=== PATIENT | female | born 1990 | race Caucasian/White ===

== ENCOUNTER 2021-01-31 12:57 | Emergency (ER) | payer OTHER ==
[~2021-01-31] VITALS: Ht 157.5 cm; Wt 47.7 kg
[2021-01-31 13:12] VITALS: BP 122/74
--- NOTE | 2021-01-31 13:23 | PHYS DOC ---
Past History Additional Past Medical Histor: DEPRESSION ANXIETY ANOREXIA (SARA GREEN APRN) Past Surgical History: No Surgical History (SARA GREEN APRN) Adult General Chief Complaint Chief Complaint: Palpitations HPI HPI Patient is a 30-year-old female presents to the emergency department complaining of heart palpitations since November 22. Patient reports she is worried that she may have something worse going on with her body. Patient states that she has a hist ory of anorexia nervosa. Patient reports she was last hospitalized she was 22 years old. Patient states that she believes she has had a relapse recently related to a move from [place] to [facility]. Patient reports she has significantly decreased her caloric intake and has started running half marathons along with joining a running club at that runs between 4.9 of 6.8 miles each weekend. Patient reports she has been seeking help for her anorexia problems and plans to see Dr. Aguilar at [facility] in [place]. Patient reports she has been getting nauseated when she carb cycles. Patient reports during her high carb intake with Posta she becomes very nauseated has periods of vomiting and diarrhea. Patient denies any chest pains, shortness of breath, chest or nasal congestion, fever chills, rashes to her skin, urinary tract infection type signs and symptoms, denies other physical complaints or physical concerns. Patient reports taking Abilify for depression. (SARA GREEN APRN) Review of Systems Review of Systems 14 body systems of review of systems have been reviewed. See HPI for pertinent positives and negative responses, otherwise all other systems are negative, nonpertinent or noncontributory. Constitutional: Negative except as outlined in HPI above. Skin: Negative except as outlined in HPI above. Eyes: Negative except as outlined in HPI above. HENT: Negative except as outlined in HPI above. Respiratory: Negative except as outlined in HPI above. Cardiovascular: Negative except as outlined in HPI above. GI: Negative except as outlined in HPI above. : Negative except as outlined in HPI above. Musculoskeletal: Negative except as outlined in HPI above. Integument: Negative except as outlined in HPI above. Neurologic: Negative except as outlined in HPI above. Endocrine: Negative except as outlined in HPI above. Lymphatic: Negative except as outlined in HPI above. Psychiatric: Negative except as outlined in HPI above. (SARA GREEN APRN) Current Medications Current Medications Current Medications Medications (Trade) Dose Ordered Sig/Dutch Start Time Stop Time Status Last Admin Dose Admin Lactated Ringer's 1,000 ml @ 0 mls/hr 1X ONCE 01/31/21 13:30 01/31/21 13:31 UNV (SARA GREEN APRN) Physical Exam Physical Exam Constitutional: Well developed, well nourished, no acute distress, non-toxic appearance. 30-year-old female no apparent distress. Patient is very thin emaciated. HENT: Normocephalic, atraumatic, bilateral external ears normal, oropharynx moist, no oral exudates, nose normal. [] Eyes: PERRLA, EOMI, conjunctiva normal, no discharge. Neck: Normal range of motion, no tenderness, supple, no stridor. Cardiovascular:Heart rate regular rhythm, no murmur Lungs & Thorax: Bilateral breath sounds clear to auscultation Abdomen: Bowel sounds normal, soft, no tenderness, no masses, no pulsatile masses. Skin: Warm, dry, no erythema, no rash. Back: No tenderness, no CVA tenderness. Extremities: No tenderness, no cyanosis, no clubbing, ROM intact, no edema. Neurologic: Alert and oriented X 3, normal motor function, normal sensory function, no focal deficits noted. Psychologic: Affect normal, judgement normal, mood normal. (SARA GREEN APRN) Current Patient Data Vital Signs Vital Signs Date Time Temp Pulse Resp B/P (MAP) Pulse Ox O2 Delivery O2 Flow Rate FiO2 01/31/21 13:12 92 24 122/74 100 Room Air (SARA GREEN APRN) EKG EKG EKG performed at 1308 by staff shows a normal sinus rhythm without ectopy heart rate 90 bpm, IN interval 0.154, QT 0.45, no acute STEMI, no ACS, no acute ischemia appreciated, EKG interpreted by ED attending physician Dr. Fischer. (SARA GREEN APRN) Radiology/Procedures Radiology/Procedures PATIENT: MAMIE BUTLER ACCOUNT: [id number] : 1990 LOCATION: ER AGE: 30 SEX: F EXAM STATUS: REG ER ORD. PHYSICIAN: SARA GREEN APRN REASON: HEART PALPITATIONS X3 HOURS PROCEDURE: CHEST AP ONLY Chest AP only at 1319: Reason for examination: Heart palpitations for 3 hours. The heart size is normal. Mediastinum is unremarkable. Lung woodson are clear. No acute bony abnormalities are seen. Impression: No acute cardiopulmonary disease. Electronically signed by: Sandy Lerner MD (01/31/2021 1:33 PM) [id number] (SARA GREEN APRN) Heart Score C/O Chest Pain: No Risk Factors: Risk Factors: DM, Current or recent (<one month) smoker, HTN, HLP, family history of CAD, obesity. Risk Scores: Risk Factors: DM, Current or recent (<one month) smoker, HTN, HLP, family history of CAD, obesity. (SARA GREEN APRN) Course & Med Decision Making Course & Med Decision Making Pertinent Labs and Imaging studies reviewed. (See chart for details) 22-year-old female, vital signs reviewed, presents to the emergency department c hief complaint of chest palpitations. Patient's physical examination concerning for anorexia. Patient does report a relapse of her anorexia symptoms. Patient reports she is currently seeking help with the eating order specialist Dr. Aguilar that works through the [facility] system. Patient denies homicidal or suicidal ideation. A cardiorespiratory work-up was initiated in the ED. There were no concerning findings. Discussed this with patient, patient was given 1 L of LR, patient reports she is feeling much better. Patient's blood pressures in the 80s to 90s over 50s range, patient reports this is normal for her. Patient currently denies any physical complaints or physical concerns, the patient is nontoxic in appearance. 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 Aguilar. Return to ER precautions and concerns. Patient is amenable to ED discharge planning. Discussed with the patient all findings and diagnostic testing as well as the need to follow-up with their primary care provider for further evaluation and treatment or return to the ED if any new or worsening symptoms. Strict return precautions were also discussed at length, the patient voiced understanding and agreement with the discharge planning. The patient was nontoxic in appearance, in no apparent distress, and hemodynamically stable at the time of disposition. (SARA GREEN APRN) Dragon Disclaimer Dragon Disclaimer This electronic medical record was generated, in whole or in part, using a voice recognition dictation system. (SARA GREEN APRN) Attending Co-Sign The patient was seen and interviewed as well as examined at the bedside. The art was reviewed. The case was discussed. Agree with the plan of care. (DAVID FISCHER DO) Departure Departure: Impression: Primary Impression: Heart palpitations Additional Impressions: History of eating disorder History of anorexia nervosa Disposition: 01 HOME / SELF CARE / HOMELESS Condition: GOOD Referrals: YARI GAGNON SOLUTION ADVISOR (PCP) Additional Instructions: You were seen today in the emergency department for heart palpitations, a full cardiorespiratory work-up was initiated. Your findings were reassuring and that you are not having a heart attack or pneumonia or acute disease process. As we discussed your calcium is slightly low, please increase your calcium rich foods. You did disclose that you have a eating disorder relapse and are currently seeking help through Dr. Aguilar at the [facility] system. I encourage you to continue with this process with Dr. Aguilar. Please return to the emergency department for worsening symptoms or other concerns. Thank you for visiting our Emergency Department. It was a pleasure taking care of you today in the emergency department and we appreciate you trusting us with your care. If any additional problems come up don't he sitate to return to visit us. Please follow up with your primary care provider so they can plan additional care if needed and know about the problem that you had. If symptoms worsen come back to the Emergency Department. Any concerning symptoms that start such as chest pain, shortness of air, weakness or numbness on one side of the body, running high fevers or any other concerning symptoms return to the ER. EMERGENCY DEPARTMENT GENERAL DISCHARGE INSTRUCTIONS Thank you for coming to [facility] (ED) today and trusting us with you care. We trust that you had a positivie experience in our Emergency Department. If you wish to speak to the department management, you may call the director at [phone]. YOUR FOLLOW UP INSTRUCTIONS ARE FOLLOWS: 1. Do you have a private Doctor? If you do not have a private doctor, please ask for a resource list of physicians or clinics that may be able to assist you with follow up care. 2. The Emergency Physician has interpreted your x-rays. The X-Ray specialist will also review them. If there is a change in the findings, you will be notified in 48 hours when at all possible. 3. A lab test or culture has been done, your results will be reviewed and you will be notified if you need a change in treatment. ADDITIONAL INSTRUCTIONS AND INFORMATION: 1. Your care today has been supervised by a physician who is specially trained in emergency care. Many problems require more than one evaluation for a complete diagnosis and treatment. We recommend that you schedule your follow up appointment as recommended to ensure complete treatment of you illness or injury. If you are unable to obtain follow up care and continue to have a problem, or if your condition worsens, we recommend that you return to the ED. 2. We are not able to safely determine your condition over the phone nor are we able to give sound medical advice over the phone. For these safety reasons, if you call for medical advice we will ask you to come to the ED for further evaluation. 3. If you have any questions regarding these discharge instructions please call the ED at [phone]. SAFETY INFORMATION: In the interest of safety, wellness, and injury prevention; we encourage you to wear your sealbelt, if you smoke; quite smoking, and we encourage family to use a protective helmet for bicycling and other sporting events that present an increased risk for head injury. IF YOUR SYMPTOMS WORSEN OR NEW SYMPTOMS DEVELOP, OR YOU HAVE CONCERNS ABOUT YOUR CONDITION; OR IF YOUR CONDITION WORSENS WHILE YOU ARE WAITING FOR YOUR FOLLOW UP APPOINTMENT; EITHER CONTACT YOUR PRIMARY CARE DOCTOR, THE PHYSICIAN WHOSE NAME AND NUMBER YOU WERE GIVEN, OR RETURN TO THE ED IMMEDIATELY. Problem Qualifiers SARA GREEN APRN Jan 31, 2021 13:23 DAVID FISCHER DO Feb 01, 2021 06:28
--- NOTE | 2021-01-31 13:24 | EKG ---
[address] [address] Test Date: 2021-01-31 Test Time: 13:08:51 Pat Name: MAMIE BALES Department: Room: Gender: F Ribbon Blocker: NAVEEN : 1990 Requested By: SARA GREEN Order Number: [id number] Reading MD: Measurements Intervals [place] Rate: 90 P: 61 [place]: 154 QRS: 48 QRSD: 78 T: 32 QT: 344 QTc: 425 Interpretive Statements SINUS RHYTHM NORMAL ECG RI6.02 No previous ECG available for comparison
[2021-01-31] MEDS ORDERED: IV RINGERS SOLUTION,LACTATED 1,000 ML IV ONE (13:30)
--- NOTE | 2021-01-31 13:35 | RAD ---
Chest AP only at 1319: Reason for examination: Heart palpitations for 3 hours. The heart size is normal. Mediastinum is unremarkable. Lung woodson are clear. No acute bony abnormali ties are seen. Impression: No acute cardiopulmonary disease. Electronically signed by: Sandy Lerner MD (01/31/2021 1:33 PM) [id number]
[2021-01-31 14:03] LABS: BASO % 1 % (0-3); EOS % 0 % (0-3); HEMATOCRIT 30.4 % (36.0-47.0); HEMOGLOBIN 10.4 g/dL (12.0-15.5); LYMPH # 0.8 x10^3/uL (1.0-4.8); LYMPH % 12 % (24-48); MEAN CORPUSCULAR HEMOGLOBIN 34 pg (25-35); MEAN CORPUSCULAR HGB CONC 34 g/dL (31-37); MEAN CORPUSCULAR VOLUME 100 fL (79-100); MONO # 0.5 x10^3/uL (0.0-1.1); MONO % 8 % (0-9); NEUT # 5.2 x10^3uL (1.8-7.7); NEUT % 80 % (31-73); PLATELET COUNT 289 x10^3/uL (140-400); RED BLOOD COUNT 3.06 x10^6/uL (3.50-5.40); WHITE BLOOD COUNT 6.5 x10^3/uL (4.0-11.0)
[2021-01-31 14:17] LABS: BARBITURATES NEG (NEG); BENZODIAZEPINES NEG (NEG); CANNABINOIDS NEG (NEG); COCAINE NEG (NEG); METHADONE NEG (NEG); OPIATES NEG (NEG); PHENCYCLIDINE NEG (NEG)
[2021-01-31 14:20] LABS: AMPHETAMINE/METHAMPHETAMINE NEG (NEG)
[2021-01-31 14:21] LABS: CALCIUM 8.1 mg/dL (8.5-10.1); CREATININE 0.5 mg/dL (0.6-1.0); GFR 146.9; POTASSIUM 4.3 mmol/L (3.5-5.1)
[2021-01-31 14:24] LABS: ALBUMIN 3.6 g/dL (3.4-5.0); ALBUMIN/GLOBULIN RATIO 1.6 (1.0-1.7); TOTAL BILIRUBIN 0.3 mg/dL (0.2-1.0); TOTAL PROTEIN 5.8 g/dL (6.4-8.2)
[2021-01-31 14:32] LABS: BILIRUBIN,URINE NEG (NEG); CLARITY,URINE CLEAR; COLOR,URINE YELLOW; GLUCOSE,URINE NEG (NEG); NITRITE,URINE NEG (NEG); UROBILINOGEN,URINE 0.2 mg/dL (0.2 mg/dL)
[2021-01-31 14:33] LABS: BACTERIA,URINE 0 /HPF (0-FEW); SQUAMOUS EPITHELIAL CELL,UR FEW /LPF
== END 2021-01-31 15:33 | disposition home or self-care (01) ==
LOC: ER 12:57
DX: R00.2 Palpitations (principal); R11.2 Nausea with vomiting, unspecified
CPT/HCPCS: 36415; 71045; 80053; 80307; 81001; 81025; 84484; 85025; 87086; 93005; 99285; J7120; 96360

== ENCOUNTER 2021-03-14 16:29 | Emergency (ER) | payer OTHER ==
[~2021-03-14] VITALS: Ht 157.5 cm; Wt 61.0 kg
[2021-03-14] MEDS ORDERED: ONDANSETRON ODT 4 MG TAB.RAPDIS PO ONE (17:15)
--- NOTE | 2021-03-14 17:17 | EKG ---
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
[2021-03-14] MEDS ORDERED: LORazepam 1 MG TABLET PO ONE (17:30)
[2021-03-14 17:39] LABS: BASO % 1 % (0-3); EOS % 0 % (0-3); HEMATOCRIT 34.8 % (36.0-47.0); HEMOGLOBIN 11.9 g/dL (12.0-15.5); LYMPH # 1.6 x10^3/uL (1.0-4.8); LYMPH % 21 % (24-48); MEAN CORPUSCULAR HEMOGLOBIN 35 pg (25-35); MEAN CORPUSCULAR HGB CONC 34 g/dL (31-37); MEAN CORPUSCULAR VOLUME 101 fL (79-100); MONO # 0.6 x10^3/uL (0.0-1.1); MONO % 8 % (0-9); NEUT # 5.3 x10^3uL (1.8-7.7); NEUT % 71 % (31-73); PLATELET COUNT 220 x10^3/uL (140-400); RED BLOOD COUNT 3.44 x10^6/uL (3.50-5.40); RED CELL DISTRIBUTION WIDTH 12.5 % (11.5-14.5); WHITE BLOOD COUNT 7.5 x10^3/uL (4.0-11.0)
--- NOTE | 2021-03-14 17:45 | PHYS DOC ---
Past History Additional Past Medical Histor: DEPRESSION ANXIETY ANOREXIA (JAMES FLETCHER) Past Surgical History: No Surgical History, Other Additional Past Surgical Histo: wisdom tooth extraction (JAMES FLETCHER) Alcohol Use: None (JAMES FLETCHER) General Adult EDM: Chief Complaint: ALTERED MENTAL STATUS HPI: HPI: Patient is a 30 year old female with history of anorexia nervosa and anxiety who presents via EMS from home with complaints of lightheadedness and a fall at ~1300. Patient states that she went running today as well as completed an exercise at her gym before she fell. She states she felt "sleepy" and lightheaded. She denies loss of consciousness and head trauma. She reports pain to her bilateral elbows and bilateral knees, with an open abrasion on her right knee. Patient states she also feels nauseated. Patient expresses some worry about her marriage and her employment, stating "my wants to divorce me," and "I am going to lose my job." Patient reports she was given time off from work from January 31 to March 08 to seek treatment for her anorexia. She denies having sought treatment beyond her scheduled telemedicine visits during that time. She also states, "I have been given chance after chance to correct my thought patterns and I cannot do it on my own." She and her recently relocated from [place] to [place] in September of this year. Patient reports she does not consistently take her antianxiety medications. Patient has no other complaints at this time. (JAMES FLETCHER) Review of Systems: Review of Systems: ROS negative except as mentioned in HPI. (JAMES FLETCHER) Current Medications: Current Meds: Current Medications Medications (Trade) Dose Ordered Sig/Dutch Start Time Stop Time Status Last Admin Dose Admin Lorazepam (Ativan) 1 mg 1X ONCE 03/14/21 17:30 03/14/21 17:31 Ondansetron HCl (Zofran Odt) 4 mg 1X ONCE 03/14/21 17:15 03/14/21 17:16 DC (JAMES FLETCHER) Allergies: Allergies: Allergies Coded Allergies Type Severity Reaction Last Updated Verified No Known Drug Allergies 01/31/21 No (JAMES FLETCHER) Physical Exam: PE: Constitutional: Well developed, well nourished, non-toxic appearance. Patient is pressed into bed breathing heavily and hyperalert. HENT: Normocephalic, atraumatic, bilateral external ears normal, oropharynx moist, no oral exudates, nose normal. Eyes: PERRLA, EOMI, conjunctiva normal, no discharge. Neck: Normal range of motion, no tenderness, supple, no stridor. Cardiovascular: Heart rate regular rhythm, no murmur. Lungs & Thorax: Bilateral breath sounds clear to auscultation. Abdomen: Bowel sounds normal, soft, no tenderness, no masses, no pulsatile masses. Skin: Abrasion to the right knee with some loose skin, bruising to the left elbow, skin otherwise warm, dry, no erythema, no rash. Back: No tenderness, no CVA tenderness. Extremities: No tenderness, no cyanosis, no clubbing, ROM intact, no edema. Neurologic: Alert and oriented x3, normal motor function, normal sensory function, no focal deficits noted. Psychologic: Anxious affect, impaired judgment secondary to anxiety, mood normal. (JAMES FLETCHER) Current Patient Data: Labs: Laboratory Tests Test 03/14/21 17:20 03/14/21 17:25 White Blood Count 7.5 x10^3/uL (4.0-11.0) Red Blood Count 3.44 x10^6/uL (3.50-5.40) Hemoglobin 11.9 g/dL (12.0-15.5) Hematocrit 34.8 % (36.0-47.0) Mean Corpuscular Volume 101 fL (79-100) Mean Corpuscular Hemoglobin 35 pg (25-35) Mean Corpuscular Hemoglobin Concent 34 g/dL (31-37) Red Cell Distribution Width 12.5 % (11.5-14.5) Platelet Count 220 x10^3/uL (140-400) Neutrophils (%) (Auto) 71 % (31-73) Lymphocytes (%) (Auto) 21 % (24-48) Monocytes (%) (Auto) 8 % (0-9) Eosinophils (%) (Auto) 0 % (0-3) Basophils (%) (Auto) 1 % (0-3) Neutrophils # (Auto) 5.3 x10^3uL (1.8-7.7) Lymphocytes # (Auto) 1.6 x10^3/uL (1.0-4.8) Monocytes # (Auto) 0.6 x10^3/uL (0.0-1.1) Eosinophils # (Auto) 0.0 x10^3/uL (0.0-0.7) Basophils # (Auto) 0.0 x10^3/uL (0.0-0.2) Sodium Level 120 mmol/L (136-145) Potassium Level 3.4 mmol/L (3.5-5.1) Chloride Level 87 mmol/L (98-107) Carbon Dioxide Level 25 mmol/L (21-32) Anion Gap 8 (6-14) Blood Urea Nitrogen 18 mg/dL (7-20) Creatinine 0.4 mg/dL (0.6-1.0) Estimated GFR (Cockcroft-Gault) 190.1 Glucose Level 91 mg/dL (70-99) Calcium Level 8.6 mg/dL (8.5-10.1) Urine Test Negative (NEG) Vital Signs: Vital Signs Date Time Temp Pulse Resp B/P (MAP) Pulse Ox O2 Delivery O2 Flow Rate FiO2 03/14/21 16:30 97.7 50 16 111/63 (79) 100 Room Air (JAMES FLETCHER) EKG: EKG: EKG Interpreted by Dr. Crawford: Regular rate 54bpm and rhythm with no ectopic beats. No concerning ST-T wave changes. Regular QR interval. (JAMES FLETCHER) Heart Score: C/O Chest Pain: No (JAMES FLETCHER) Course & Med Decision Making: Course & Med Decision Making Pertinent Labs and Imaging studies reviewed. (See chart for details) Patient appears extremely anxious on exam and during conversation. Ativan and Zofran were offered, but the patient refused. In the department, we will evaluate for electrolyte abnormalities due to her history of anorexia. Should her work-up be reassuring, she will be advised to seek either inpatient or outpatient treatment for her anxiety and anorexia. She expresses concern of pending separation from her as well as possibly being let go from her job, and understands that she requires further treatment than she currently has. However she seems reluctant to seek this additional management. Patient's came from the waiting room to sit with her at bedside. She is much more cooperative and agreed to take the Zofran and Ativan. On reevaluation, she seems less anxious and is open to seeking additional psychologic/psychiatric support. She will be provided with resources that she may contact at her convenience. Patient has anxiety medications at home that she may resume taking. At this time the patient is stable for discharge. (JAMES FLETCHER) Dragon Disclaimer: Dragon Disclaimer: This electronic medical record was generated, in whole or in part, using a voice recognition dictation system. (JAMES FLETCHER) Departure Departure: Impression: Primary Impression: Anxiety Additional Impressions: Anorexia nervosa Abrasion of knee, right Qualified Codes: S80.211A - Abrasion, right knee, initial encounter Disposition: HOME / SELF CARE / HOMELESS Condition: STABLE Referrals: YARI GAGNON RADIO ARTIST (PCP) Patient Instructions: Abrasion, [id number], Anxiety and Panic Attacks, [id number] Additional Instructions: Provided with a pamphlet with phone numbers and resources to seek further evaluation and management of your anxiety and eating disorders. Please return to the emergency department should your symptoms worsen. Attending Signature Attending Signature I have participated in the care of this patient and I have reviewed and agree with all pertinent clinical information above including history, exam, and recommendations. (MANISHA SHIPMAN MD) Attending Signature Attending Signature I have participated in the care of this patient and I have reviewed and agree with all pertinent clinical information above including history, exam, and recommendations. (MANISHA SHIPMAN MD) JAMES FLETCHER Mar 14, 2021 17:45 MANISHA SHIPMAN MD Mar 18, 2021 00:21
[2021-03-14 17:46] LABS: CALCIUM 8.6 mg/dL (8.5-10.1); CREATININE 0.4 mg/dL (0.6-1.0); GFR 190.1; POTASSIUM 3.4 mmol/L (3.5-5.1)
[2021-03-14 17:53] LABS: U PREG PATIENT NEGATIVE (NEG)
[2021-03-14 18:30] VITALS: BP 117/77
== END 2021-03-14 19:00 | disposition home or self-care (01) ==
LOC: ER 16:29
DX: S80.211A Abrasion, right knee, initial encounter (principal); F50.00 Anorexia nervosa, unspecified; F41.9 Anxiety disorder, unspecified; Z68.24 Body mass index [BMI] 24.0-24.9, adult; W18.39XA Other fall on same level, initial encounter; Y93.89 Activity, other specified; Y92.89 Other specified places as the place of occurrence of the external cause; Y99.8 Other external cause status
CPT/HCPCS: 36415; 80048; 81025; 85025; 93005; 99285; Q0162

== ENCOUNTER 2021-07-29 02:51 | Emergency (ER) | payer OTHER ==
[~2021-07-29] VITALS: Ht 167.6 cm; Wt 67.7 kg
--- NOTE | 2021-07-29 02:54 | PHYS DOC ---
Past History Additional Past Medical Histor: DEPRESSION ANXIETY ANOREXIA Past Medical History Carotenemia (MANISHA SHIPMAN MD) Past Surgical History: No Surgical History, Other Additional Past Surgical Histo: wisdom tooth extraction (MANISHA SHIPMAN MD) Alcohol Use: None (MANISHA SHIPMAN MD) General Adult HPI: HPI: ".. I got really bad abdomen pain... I get a lot of abd. pain stuff.. but this is worse than usual..." Patient is a 31 year old female who presents with above hx and complaints of generalized abdomen pain. Patient denies any trauma. Patient denies any severe ill contacts. 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 Pt eating disorder has required hospitalization x2. Patient does consume a lot of high carotene food products such as red and orange colored helton peppers. Patient does have a history of anxiety. Patient has history of decompensation of her eating disorder when she is stressed.. Patient works out every day. Patient has had issues of excessive compulsive behaviors. Patient denies any bad food intake. Patient has had episodes of constipation and intolerance to antibiotics causing GI upset. Pt has had stools and passing gas. (MANISHA SHIPMAN MD) Review of Systems: Review of Systems: Constitutional: Denies fever or chills Eyes: Denies change in visual acuity HENT: Denies nasal congestion or sore throat Respiratory: Denies cough or shortness of breath Cardiovascular: Denies chest pain or edema GI: Complains of generalized abdominal pain, nausea,. Some complaints of constipation, distention and gas. Denies active Vomiting, bloody stools or diarrhea : Denies dysuria Musculoskeletal: Denies back pain or joint pain Integument: Yellow skin- Neurologic: Denies headache, focal weakness or sensory changes Endocrine: Denies polyuria or polydipsia Lymphatic: Denies swollen glands Psychiatric: Hx. of depression , anxiety, anorexia nervosa. (MANISHA SHIPMAN MD) Family History: Family History: Noncontributory to presentation (MANISHA SHIPMAN MD) Current Medications: Current Meds: See nursing for home meds (MANISHA SHIPMAN MD) Allergies: Allergies: Allergies Coded Allergies Type Severity Reaction Last Updated Verified No Known Drug Allergies 01/31/21 No (MANISHA SHIPMAN MD) Physical Exam: PE: Constitutional: Well developed, well nourished, moderate acute distress, non- toxic appearance. [] HENT: Normocephalic, atraumatic, bilateral external ears normal, oropharynx moist, no oral exudates, nose normal. [] Eyes: PERRLA, EOMI, conjunctiva normal, no discharge. [] Neck: Normal range of motion, no tenderness, supple, no stridor. [] Cardiovascular:Heart rate regular rhythm, no murmur [] Lungs & Thorax: Bilateral breath sounds equal apex on auscultation [] Abdomen: Bowel sounds normal, soft, generalized tenderness, no masses, no pulsatile masses.. Distended. Rebound epigastric and left upper mid. Tympanic. Skin: Warm, dry, no erythema, no rash. Obvious carotenemia color to skin palms ect. Back: No tenderness, no CVA tenderness. [] Extremities: No tenderness, no cyanosis, no clubbing, ROM intact, no edema. No true psoas sign Neurologic: Alert and oriented X 3, normal motor function, normal sensory function, no focal deficits noted. [] Psychologic: Affect anxious, judgement normal, mood normal. [] (MANISHA SHIPMAN MD) EKG: EKG: [] (MANISHA SHIPMAN MD) Radiology/Procedures: Radiology/Procedures: [][address] [place] [id number] IMAGING REPORT Signed PATIENT: MAMIE BUTLER ACCOUNT: [id number] : 1990 LOCATION: ER AGE: 31 SEX: F EXAM STATUS: REG ER ORD. PHYSICIAN: MANISHA SHIPMAN MD REASON: Abdomen pain, Lt,. mid Omni 300 75cc PROCEDURE: CT ABD PELV W/ORAL&IV CONTRAST CT OF THE ABDOMEN AND PELVIS WITH IV CONTRAST. History: Reason: Abdomen pain, Lt,. mid Comparison:None. Procedure: Contiguous axial images of the abdomen and pelvis were performed after the administration of 75 cc of Omni 300 IV contrast and oral contrast. Oral contrast: No. Findings: The stomach is distended with contrast and air. The gallbladder is not seen and could be contracted or removed. There is a trace of free fluid in the pelvis on the right. There is air and stool scattered throughout the colon. Liver: Unremarkable Spleen: Unremarkable Pancreas: Unremarkable Adrenal Glands: Unremarkable Kidneys: Prominence of the renal pelvises bilaterally is consistent with extrarenal pelvises There is no mass or lymphadenopathy. There is no free air. The urinary bladder appears normal. Impression: 1. Bilateral hydronephrosis. . Distention of the stomach with fluid. This can be secondary to viral gastritis. 3. Constipation versus mild colonic ileus. End Impression PQRS Compliance Statement: One or more of the following individualized dose reduction techniques were utilized for this examination: 1. Automated exposure control 2. Adjustment of the mA and/or kV according to patient size 3. Use of iterative reconstruction technique Electronically signed by: Magdaleno Flores III, MD (07/29/2021 6:01 AM) [facility] DICTATED AND SIGNED BY: MAGDALENO FLORES III, MD DATE: 07/29/21 0555 CC: MANISHA SHIPMAN MD; PCP,NO ~MTH0 [address] [place] [id number] IMAGING REPORT Signed PATIENT: MAMIE BUTLER ACCOUNT: [id number] : 1990 LOCATION: ER AGE: 31 SEX: F EXAM STATUS: REG ER ORD. PHYSICIAN: MANISHA SHIPMAN MD REASON: Abdomen pain PROCEDURE: ACUTE ABDOMEN SERIES Acute Abdominal Series: Technique: PA view of the chest and supine and upright views of the abdomen were obtained. History: Pain. Comparison: None. Findings: The lungs are clear. There is distention of the stomach with fluid. There is air scattered throughout the colon. There is a suggestion of thumbprinting in the colon. There is air within multiple loops of small bowel. Impression: Abnormal bowel gas pattern consistent with a mild ileus. There is a suggestion of bowel wall edema in the colon which could be inflammatory or infectious colitis. Electronically signed by: Magdaleno Flores III, MD (07/29/2021 4:57 AM) [facility] DICTATED AND SIGNED BY: MAGDALENO FLORES III, MD DATE: 07/29/21 0454 CC: MANISHA SHIPMAN MD; PCP,NO ~MTH0 0 (MANISHA SHIPMAN MD) Heart Score: C/O Chest Pain: N/A Risk Factors: Risk Factors: DM, Current or recent (<one month) smoker, HTN, HLP, family history of CAD, obesity. Risk Scores: Score 0 - 3: 2.5% MACE over next 6 weeks - Discharge Home Score 4 - 6: 20.3% MACE over next 6 weeks - Admit for Clinical Observation Score 7 - 10: 72.7% MACE over next 6 weeks - Early Invasive Strategies (MANISHA SHIPMAN MD) Course & Med Decision Making: Course & Med Decision Making Pertinent Labs and Imaging studies reviewed. (See chart for details) Patient stay on a clear fluid diet only for the next 2 days. No solids. No milk products. Clear fluids. Allow bowel rest. Push fluids. Follow-up primary care. Have them review ED record. You do have findings suggestive mild ileus. Recommend colonscopic eval. to rule out colitis and inflammatory bowel disorders. Pt endoresed to Dr. Cruz at shift change. He will make disposition. CT results pending. Impression: 1. Abdomen pain 2. Constipation 3. Mild elevation in LFTs AST 39 ALT 96 alk phos 130 4. Carotenemia 5. Hx Body Dysmorphia and anorexia nervosa 6. History of anxiety 7. History of some compulsive behaviors. 8. Illeus-Partial 9. Hx. IBS 10. Gastroenteritis. [] (MANISHA SHIPMAN MD) Course & Med Decision Making I assumed care of patient after comprehensive signout from off going physician. Nonetheless, off going physician was able to discharge patient prior to deferring all further patient care to myself (DYLLAN CRUZ DO) Dragon Disclaimer: Dragon Disclaimer: This electronic medical record was generated, in whole or in part, using a voice recognition dictation system. (MANISHA SHIPMAN MD) Departure Departure: Disposition: HOME / SELF CARE / HOMELESS Condition: STABLE Referrals: PCP,JOSÉ MIGUEL (PCP) Margot Disclaimer This chart was dictated in whole or in part using Voice Recognition software in a busy, high-work load, and often noisy Emergency Department environment. It may contain unintended and wholly unrecognized errors or omissions. (MANISHA SHIPMAN MD) Dragon Disclaimer This chart was dictated in whole or in part using Voice Recognition software in a busy, high-work load, and often noisy Emergency Department environment. It may contain unintended and wholly unrecognized errors or omissions. (DYLLAN CRUZ DO) MANISHA SHIPMAN MD Jul 29, 2021 02:53 DYLLAN CRUZ DO Jul 29, 2021 08:23
[2021-07-29] MEDS ORDERED: ONDANSETRON PF 4 MG/2 ML VIAL. IVP ONE (03:30)
[2021-07-29] MEDS ORDERED: IV RINGERS SOLUTION,LACTATED 1,000 ML IV SCH (03:30)
[2021-07-29] MEDS ORDERED: FAMOTIDINE 20 MG/2 ML VIAL IVP ONE (03:30)
[2021-07-29 03:44] LABS: BASO % 0 % (0-3); EOS # 0.1 x10^3/uL (0.0-0.7); EOS % 2 % (0-3); HEMATOCRIT 38.3 % (36.0-47.0); HEMOGLOBIN 12.9 g/dL (12.0-15.5); LYMPH # 0.5 x10^3/uL (1.0-4.8); LYMPH % 10 % (24-48); MEAN CORPUSCULAR HEMOGLOBIN 32 pg (25-35); MEAN CORPUSCULAR HGB CONC 34 g/dL (31-37); MEAN CORPUSCULAR VOLUME 95 fL (79-100); MONO # 0.6 x10^3/uL (0.0-1.1); MONO % 12 % (0-9); NEUT % 75 % (31-73); PLATELET COUNT 211 x10^3/uL (140-400); RED BLOOD COUNT 4.01 x10^6/uL (3.50-5.40); RED CELL DISTRIBUTION WIDTH 14.9 % (11.5-14.5); WHITE BLOOD COUNT 5.3 x10^3/uL (4.0-11.0)
[2021-07-29 03:55] LABS: CALCIUM 8.4 mg/dL (8.5-10.1); CREATININE 0.5 mg/dL (0.6-1.0); GFR 145.9; POTASSIUM 3.4 mmol/L (3.5-5.1)
[2021-07-29 03:56] LABS: BACTERIA,URINE 0 /HPF (0-FEW); BILIRUBIN,URINE NEG (NEG); CLARITY,URINE CLEAR; COLOR,URINE YELLOW; GLUCOSE,URINE NEG (NEG); NITRITE,URINE NEG (NEG); RBC,URINE 0 /HPF (0-2); SQUAMOUS EPITHELIAL CELL,UR OCC /LPF; UROBILINOGEN,URINE 0.2 mg/dL (0.2 mg/dL); WBC,URINE OCC /HPF (0-4)
[2021-07-29 04:03] LABS: BARBITURATES NEG (NEG); BENZODIAZEPINES NEG (NEG); CANNABINOIDS NEG (NEG); COCAINE NEG (NEG); METHADONE NEG (NEG); OPIATES NEG (NEG); PHENCYCLIDINE NEG (NEG)
[2021-07-29 04:04] LABS: AMPHETAMINE/METHAMPHETAMINE NEG (NEG)
[2021-07-29 04:08] LABS: ALBUMIN 3.5 g/dL (3.4-5.0); DIRECT BILIRUBIN 0.1 mg/dL (0.0-0.2); TOTAL BILIRUBIN 0.3 mg/dL (0.2-1.0); TOTAL PROTEIN 6.6 g/dL (6.4-8.2)
[2021-07-29 04:10] LABS: U PREG PATIENT NEGATIVE (NEG)
[2021-07-29] MEDS ORDERED: MAGNESIUM HYDROXIDE 2,400 MG/30 ML ORAL.SUSP. PO ONE (04:30)
[2021-07-29] MEDS ORDERED: KETOROLAC 30 MG/ML VIAL. IVP ONE (04:30)
[2021-07-29] MEDS ORDERED: IOHEXOL 240 MG/ML 50ML VIAL. ONE (04:43)
[2021-07-29 04:46] LABS: INFLUENZA A PATIENT NEGATIVE (NEGATIVE); INFLUENZA B PATIENT NEGATIVE (NEGATIVE)
--- NOTE | 2021-07-29 04:59 | RAD ---
Acute Abdominal Series: Technique: PA view of the chest and supine and upright views of the abdomen were obtained. History: Pain. Comparison: None. Findings: The lungs are clear. There is distention of the stomach with fluid. There is air scattered throughout the colon. There is a suggestion of thumbprinting in the colon. There is air within multiple loops o f small bowel. Impression: Abnormal bowel gas pattern consistent with a mild ileus. There is a suggestion of bowel wall edema in the colon which could be inflammatory or infectious colitis. Electronically signed by: Sly Chavez III, MD (07/29/2021 4:57 AM) [facility]
[2021-07-29] MEDS ORDERED: IOHEXOL 300 MG/ML 75 ML VIAL. IV ONE (05:00)
[2021-07-29 05:31] VITALS: BP 130/68
--- NOTE | 2021-07-29 06:03 | RAD ---
CT OF THE ABDOMEN AND PELVIS WITH IV CONTRAST. History: Reason: Abdomen pain, Lt,. mid Comparison:None. Procedure: Contiguous axial images of the abdomen and pelvis were performed after the administration of 75 cc o f Omni 300 IV contrast and oral contrast. Oral contrast: No. Findings: The stomach is distended with contrast and air. The gallbladder is not seen and could be contracted or removed. There is a trace of free fluid in the pelvis on the right. There is air and stool scattered throughout the colon. Liver: Unremarkable Spleen: Unremarkable Pancreas: Unremarkable Adrenal Glands: Unremarkable Kidneys: Prominence of the renal pelvises bilaterally is consistent with extrarenal pelvises There is no mass or lymphadenopathy. There is no free air. The urinary bladder appears normal. Impression: 1. Bilateral hydronephrosis. . Distention of the stomach with fluid. This can be secondary to viral gastritis. 3. Constipation versus mild colonic ileus. End Impression PQRS Compliance Statement: One or more of the following individualized dose reduction techniques were utilized for this examinat ion: 1. Automated exposure control 2. Adjustment of the mA and/or kV according to patient size 3. Use of iterative reconstruction technique Electronically signed by: Sly Chavez III, MD (07/29/2021 6:01 AM) [facility]
== END 2021-07-29 06:11 | disposition home or self-care (01) ==
LOC: ER 02:51
DX: K52.9 Noninfective gastroenteritis and colitis, unspecified (principal); K59.00 Constipation, unspecified; R79.89 Other specified abnormal findings of blood chemistry; E67.1 Hypercarotenemia; F41.9 Anxiety disorder, unspecified; Z20.822 Contact with and (suspected) exposure to COVID-19
CPT/HCPCS: 36415; 74022; 74177; 80048; 80076; 80307; 81001; 81025; 82150; 83690; 85025; 87428; 96361; 96374; 96375; 99285; J1885; J2405; J3490; J7120; Q9967